=== PATIENT | female | born 1965 | race Caucasian/White ===

== ENCOUNTER 2021-02-16 09:30 | Outpatient (CLI) | payer OTHER | END 2021-02-16 09:31 | disposition home or self-care (01) | LOC: BICMAMMO 09:30 | PROVIDERS: ATTEND Family Medicine Sports Medicine | DX: Z12.31 Encounter for screening mammogram for malignant neoplasm of breast (principal); N64.89 Other specified disorders of breast; Z80.3 Family history of malignant neoplasm of breast; Z80.8 Family history of malignant neoplasm of other organs or systems | CPT/HCPCS: 77063; 77067 ==

== ENCOUNTER 2021-03-17 08:52 | Outpatient (CLI) | payer OTHER | END 2021-03-17 08:53 | disposition home or self-care (01) | LOC: BICMAMMO 08:52 | PROVIDERS: ATTEND Family Medicine Sports Medicine | DX: R92.2 Inconclusive mammogram (principal); N60.02 Solitary cyst of left breast; N64.89 Other specified disorders of breast | CPT/HCPCS: G0279 ==

== ENCOUNTER 2024-04-23 07:53 | Outpatient (CLI) | payer BC | END 2024-04-23 07:54 | disposition home or self-care (01) | LOC: BICMAMMO 07:53 | PROVIDERS: ATTEND Family Medicine Sports Medicine | DX: N60.02 Solitary cyst of left breast (principal); R92.8 Other abnormal and inconclusive findings on diagnostic imaging of breast; N64.89 Other specified disorders of breast | CPT/HCPCS: 77066; G0279 ==